=== PATIENT | female | born 1950 | race Caucasian/White ===

== ENCOUNTER 2021-04-12 13:45 | Emergency (ER) | payer MEDICARE, OTHER ==
[~2021-04-12] VITALS: Ht 157.5 cm; Wt 86.2 kg
[~2021-04-12 13:45] MED LIST: ASPI325 PO; Aspirin EC81 MG PO; CHOL10002; CONESTTC VAG; CRANBERRY PLUS1 EAC1 PO; Caltrate 600600 MG; Flecainide Acet50 MG PO; LEVSOD100 PO; LEVSOD75; METO25 PO; METO25ER PO; METO50; PROM25 PO; Ultram50 MG PO; XARELTO20 MG PO
[2021-04-12 14:31] LABS: BASOPHILS ABSOLUTE AUTO 0.02 K/mm3 (0.00-0.23); BASOPHILS PERCENT AUTO 0 % (0-2); EOSINOPHILS PERCENT AUTO 0 % (0-6); Hematocrit 50.7 % (33.0-51.0); Hemoglobin 17.2 g/dL (11.5-16.0); IMMATURE GRAN ABSOLUTE AUTO 0.06 K/mm3 (0.00-0.10); IMMATURE GRAN PERCENT AUTO 1 % (0-1); LYMPHOCYTES ABSOLUTE AUTO 2.42 K/mm3 (0.84-5.20); LYMPHOCYTES PERCENT AUTO 20 % (21-46); MONOCYTES ABSOLUTE AUTO 0.94 K/mm3 (0.16-1.47); MONOCYTES PERCENT AUTO 8 % (4-13); Mean Corpuscular HGB 32.5 pg (26.0-34.0); Mean Corpuscular HGB Conc 33.9 g/dL (31.5-36.5); Mean Corpuscular Volume 96 fL (80-100); Mean Platelet Volume 9.7 fL (9.1-12.4); NEUTROPHILS ABSOLUTE AUTO 8.81 K/mm3 (1.96-9.15); NEUTROPHILS PERCENT AUTO 72 % (41-73); Platelet Count 289 K/mm3 (150-400); RDW Coefficient Variation 12.3 % (11.7-14.2); RDW Standard Deviation 43.2 fL (35.1-46.3); White Blood Cell Count 12.25 K/mm3 (4.00-11.30)
[2021-04-12 14:47] LABS: Albumin, Blood 3.8 g/dL (3.4-5.0); Albumin/Globulin Ratio 0.9 (0.8-1.8); Bilirubin, Total 0.5 mg/dL (0.1-1.0); Bun/Creatinine Ratio 20.4 (12.0-20.0); Calcium, Blood 9.4 mg/dL (8.5-10.1); Creatinine, Blood 1.08 mg/dL (0.40-1.00); Globulin, Blood 4.3 g/dL (2.2-4.0); Potassium, Blood 3.7 mmol/L (3.5-5.5); Total Protein, Blood 8.1 g/dL (6.4-8.2)
[2021-04-12 18:03] LABS: Source, Urine Clean Catch
[2021-04-12 18:05] LABS: Appearance, Urine Hazy (Clear); Bilirubin, Urine Neg (Neg); Blood, Urine 2+ (Neg); Color, Urine Yellow (P-Yellow); Glucose Qualitative, Urine Neg (Neg); Ketones, Urine 4+ (Neg); Leukocyte Esterase, Urine 1+ (Neg); Nitrite, Urine Neg (Neg); Protein, Urine 2+ (Neg); Specific Gravity, Urine 1.025 (1.003-1.022); Urobilinogen, Urine NORM (Normal)
[2021-04-12 18:18] LABS: Bacteria Many /hpf; Red Blood Cells, Urine 0-2 /hpf (0-2); Squamous Epithelial Cells Many /hpf (Few)
[2021-04-12] MEDS ORDERED: PROC5 PO (19:36)
[2021-04-12] MEDS ORDERED: PHENERGAN25 MG PR (19:36)
== END 2021-04-12 20:12 | disposition home or self-care (01) ==
LOC: ER 13:45
PROVIDERS: Physician Assistant
DX: K52.9 Noninfective gastroenteritis and colitis, unspecified (principal); Z79.01 Long term (current) use of anticoagulants; Z79.899 Other long term (current) drug therapy; Z87.891 Personal history of nicotine dependence
CPT/HCPCS: 36415; 71045; 71260; 80053; 81001; 83690; 85025; 87086; 93005; 93010; 96361; 96374; 96375; 99284-25; J2405; J2550; J7030; J7120; Q9967

== ENCOUNTER 2023-05-04 11:55 | Observation (INO) | payer MEDICARE, OTHER ==
[~2023-05-04] VITALS: Ht 157.5 cm; Wt 88.7 kg
[~2023-05-04 11:55] MED LIST changes: +CALTRATE 600 P1 EACH PO; -CRANBERRY PLUS1 EAC1 PO; -Caltrate 600600 MG; +PHENERGAN25 MG PR; +PROC5 PO; +[UNRECOGNIZED DRUG - OTHER] PO
[2023-05-04 13:09] LABS: BASOPHILS ABSOLUTE AUTO 0.06 K/mm3 (0.00-0.23); BASOPHILS PERCENT AUTO 1 % (0-2); EOSINOPHILS ABSOLUTE AUTO 0.24 K/mm3 (0.00-0.68); EOSINOPHILS PERCENT AUTO 3 % (0-6); Hematocrit 42.5 % (33.0-51.0); Hemoglobin 14.2 g/dL (11.5-16.0); IMMATURE GRAN ABSOLUTE AUTO 0.02 K/mm3 (0.00-0.10); IMMATURE GRAN PERCENT AUTO 0 % (0-1); LYMPHOCYTES ABSOLUTE AUTO 1.48 K/mm3 (0.84-5.20); LYMPHOCYTES PERCENT AUTO 19 % (21-46); MONOCYTES PERCENT AUTO 9 % (4-13); Mean Corpuscular HGB 32.9 pg (26.0-34.0); Mean Corpuscular HGB Conc 33.4 g/dL (31.5-36.5); Mean Corpuscular Volume 98 fL (80-100); Mean Platelet Volume 9.1 fL (9.1-12.4); NEUTROPHILS ABSOLUTE AUTO 5.37 K/mm3 (1.96-9.15); NEUTROPHILS PERCENT AUTO 68 % (41-73); Platelet Count 237 K/mm3 (150-400); RDW Coefficient Variation 13.2 % (11.7-14.2); Red Blood Cell Count 4.32 M/mm3 (3.80-5.20); White Blood Cell Count 7.87 K/mm3 (4.00-11.30)
[2023-05-04] MEDS ORDERED: Flecainide Acet50 MG PO (13:10)
[2023-05-04] MEDS ORDERED: EUTHYROX25 MC1 PO (13:11)
[2023-05-04 13:30] LABS: Albumin, Blood 3.3 g/dL (3.4-5.0); Bilirubin, Total 0.3 mg/dL (0.1-1.0); Bun/Creatinine Ratio 14.1 (12.0-20.0); Calcium, Blood 9.1 mg/dL (8.5-10.1); Creatinine, Blood 0.85 mg/dL (0.40-1.00); Globulin, Blood 3.2 g/dL (2.2-4.0); Potassium, Blood 4.4 mmol/L (3.5-5.5); Total Protein, Blood 6.5 g/dL (6.4-8.2)
[2023-05-04 16:51] VITALS: BP 131/68
[2023-05-04] MEDS ORDERED: BALANCE OF NATURE PO (16:59)
--- NOTE | 2023-05-04 18:46 | NUR ---
SHIFT SUMMARY: PT A/O X 4, IND IN ROOM PLEASANT AND COOPERATIV WITH CARE. PT CONTINUES TO BE ON 3 LPM VIA NC. NO SOB OR RESPIRATORY DISTRESS NOTED AT THIS TIME. PT TALKING ON PHONE WITH NO S/S OF SOB.
[2023-05-04 19:13] VITALS: BP 137/72
[2023-05-05 05:12] VITALS: BP 138/89
--- NOTE | 2023-05-05 06:38 | NUR ---
AO, INDEPENDENT, VSS ON 3L NC, SATS AT 90% ON 3L. NO COMPLAINTS OF SOB. PRN TYLENOL EFFECTIVE FOR RASHEED PAIN LAST NIGHT. UNEVENTFUL NIGHT.
[2023-05-05 07:16] VITALS: BP 131/65
--- NOTE | 2023-05-05 09:00 | NUR ---
pt laying in bed watching tv. a/ox3, pleasant and cooperative with care, follows commands well, denies pain, lungs are dim t/o, a bit course in bases, resp even and unlabored, no cough noted or reported, currently on 3liters sating 90% at rest, hrirr, trace edema noted to b/l le, ppp+2, cap refill <3sec, vs stable, afbrile, piv site is clear and patent, btx4, abd flat soft nontender, voids without diff, skin c/w/d, maew, sandra, call light in reach.
--- NOTE | 2023-05-05 10:44 | NUR ---
pt will be discharging home today after home 02 eval.
[2023-05-05] MEDS ORDERED: ALBU2.5V5 INH (10:55)
[2023-05-05] MEDS ORDERED: IPRAT-ALBUT 0.5-3 ML INH (10:57)
[2023-05-05] MEDS ORDERED: SYMBICORT 160-4.6 GM INH (10:58)
[2023-05-05] MEDS ORDERED: PRED10 PO (11:00)
--- NOTE | 2023-05-05 14:45 | NUR ---
pt has been discharged to home, had a home o2 eval done, and requires o2, this was delivered, went over instructions with her about using o2, and her discharge instructions, she verbalized understanding. iv removed intact, new meds faxed to her pharmacy, left via wheelchair with mainframe consultant and person from [facility] who delivered 02 tanks walked out with her. she has all her belongings.
== END 2023-05-05 14:31 | disposition home or self-care (01) ==
LOC: ER 11:55 → SURS 11:56 → MEDS 16:33
PROVIDERS: Emergency Medicine; ADMIT Family Medicine
DX: J44.1 Chronic obstructive pulmonary disease with (acute) exacerbation (principal); J96.01 Acute respiratory failure with hypoxia; I48.0 Paroxysmal atrial fibrillation; E03.9 Hypothyroidism, unspecified; Z79.01 Long term (current) use of anticoagulants; Z79.899 Other long term (current) drug therapy; Z87.891 Personal history of nicotine dependence
CPT/HCPCS: 71045; 80053; 83880; 84484; 85025; 93005; 93010; 94640; 94644; 94664; 94760; 94761; 96374; 96376; 99285-25; A9270; G0378; J2930